=== PATIENT | male | born 1975 | race Caucasian/White ===

== ENCOUNTER → 2023-03-17 14:21 | Outpatient (CLI) | payer SELFPAY ==
--- NOTE | ~2023-03-17 | XR_ITS ---
EXAMINATION: XR shoulder RT min 2V, XR shoulder LT min 2V DATE: 03/17/2023 14:59 INDICATION: Bilateral shoulder pain with limited range of motion TECHNIQUE: 1. AP internally and externally rotated, AP oblique externally rotated and axillary views of the left shoulder were obtained. 2. AP internally and externally rotated, AP oblique externally rotated and axillary views of the righ t shoulder were obtained. COMPARISON: None FINDINGS: Normal alignment. 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 Moderate size marginal ossified along the inferomedial aspect of the left hu meral head. Visualized portion of the upper lungs are clear. Soft tissues are unremarkable. IMPRESSION: Moderate right and moderate to severe left glenohumeral osteoarthritis. Reviewed, dictated and finalized at location A. [employer] IMPRESSION: Moderate right and moderate to severe left glenohumeral osteoarthritis.
== END ==
DX: M75.41 Impingement syndrome of right shoulder (principal); M19.011 Primary osteoarthritis, right shoulder; M19.012 Primary osteoarthritis, left shoulder
CPT/HCPCS: 73030

== ENCOUNTER → 2023-05-01 08:48 | Outpatient (CLI) | payer OTHER, SELFPAY ==
--- NOTE | ~2023-05-01 | MR_ITS ---
EXAMINATION: MR shoulder RT wo/w con DATE: 05/01/2023 09:45 INDICATION: Right shoulder pain TECHNIQUE: Magnetic resonance imaging (MRI) of the right shoulder was performed without and with 20 m L Multihance intravenous contrast. Sequences included axial PD-weighted FS FSE, axial T1-weighted FS FSE coronal oblique PD-weighted FS FSE, coronal oblique T2-weighted FS FSE, sagittal T2-weighted FS FSE, sagittal T1-weighted SE. And postcontrast axial, sagittal and coronal T1-weighted FS FSE COMPARISON: None. FINDINGS: Coracoacromial arch: The acromion undersurface is convex in morphology (type IV) with prominent anterior downsloping. The coracoacromial ligament is normal. Minimal acromioclavicular osteoarthritis. Rotator cuff: The supraspinatus, infraspinatus and teres minor tendons are normal. The subscapularis tendon is norm al. Normal rotator cuff muscle bulk and signal. Biceps tendon, glenoid labrum and glenohumeral cartilage: Long head of the biceps tendon is normal. Diffuse labral tear with relatively well-defined linear tea r plane at the posterior inferior labrum and more irregular appearing degenerative tearing of the rem ainder of the labrum. The inferior labrum appears diminutive. There is relatively large region of seth p chondral ulceration involving the inferomedial the superomedial aspect of the humeral head but with out degenerative subchondral changes. Less severe partial thickness cartilage loss but with underlyin g subarticular cystlike changes at the central aspect of the glenoid. Fluid: Enhancing synovitis at the periphery of a small to moderate-sized glenohumeral joint effusion. With p roportional extension of fluid along the long head biceps tendon sheath. There is a 2.0 x 1.0 x 0.7 c m globular likely loose body surrounded by fluid at the deep subscapular recess. There is no abnormal fluid signal at the subacromial/subdeltoid bursa to suggest bursitis. Bones: No fracture or pathologic marrow replacing process. IMPRESSION: 1. Moderate right acromioclavicular osteoarthritis with high-grade chondromalacia at the humeral head and glenoid. 2. Diffuse labral tear/degeneration. 3. Small to moderate-sized right glenohumeral joint effusion. Reviewed, dictated and finalized at location A. R [employer] IMPRESSION: 1. Moderate right acromioclavicular osteoarthritis with high-grade chondromalac ia at the humeral head and glenoid. 2. Diffuse labral tear/degeneration. 3. Small to moderate-sized right glenohumeral joint effusion.
== END ==
DX: M19.011 Primary osteoarthritis, right shoulder (principal); M25.411 Effusion, right shoulder
CPT/HCPCS: 73223; A9577